=== PATIENT | female | born 1955 | race Caucasian/White ===

== ENCOUNTER → 2022-09-07 | Outpatient (CLI) | payer MEDICARE, MEDICAID, SELFPAY ==
--- NOTE | 2022-09-07 15:46 | RAD_ITS ---
INDICATION: baseline after pneumonia Apr 2022 EXAMINATION/TECHNIQUE: X-RAY - XR Chest 2 Views COMPARISON: November 01, 2016. FINDINGS: LINES/DEVICES: None. LUNGS: No consolidation, edema or effusion. No pneumothorax. MEDIASTINUM AND CARDIOVASCULAR STRUCTURES: Cardiac silhouette not enlarged. Central airways and mediastinal contour are unremarkable. BONES AND SOFT TISSUES: Mild degenerative vertebral changes. RAD/Chest PA and Lateral IMPRESSION: No radiographic evidence of acute cardiopulmonary disease. Electronically Signed: Puneet Plata DO at 23:25 EDT Reading Location ID and State: [facility] / [place] Tel [phone], Service support ,
== END | disposition home or self-care (01) ==
LOC: RAD 15:35
PROVIDERS: Referring Provider Internal Medicine; Visit Provider Internal Medicine
DX: J45.909 Unspecified asthma, uncomplicated (principal); Z94.4 Liver transplant status; D84.9 Immunodeficiency, unspecified; Z94.0 Kidney transplant status
CPT/HCPCS: 71046

== ENCOUNTER → 2022-09-22 | Outpatient (CLI) | payer MEDICARE, MEDICAID, SELFPAY ==
--- NOTE | 2022-09-23 09:42 | PFTCOMP ---
COMPLETE PULMONARY FUNCTION TEST INTERPRETATION Brief HPI: Patient is a 66-year-old female, currently under the care of Dr. Heath, who presents to [facility] for complete pulmonary function tests secondary to diagnosis of asthma. Respiratory therapist reports good effort and reproducible results. Interpretation: Forced expiration spirometry shows no large airways obstructive ventilatory defect with an FEV1 of 85% predicted. There is no significant bronchodilator response by strict ATS criteria. Spirograms are of good quality and plateau normally. The respiratory flow volume loop shows a normal pattern. Lung volumes by body plethysmography show a normal total lung capacity at 3.97 L, 90% predicted. All other lung volumes are within normal limits. Diffusion capacity by carbon monoxide is decreased at 58% predicted. The airway resistance is slightly elevated. No previous pulmonary function tests were available for review. Impression: Isolated reduction in diffusion capacity consistent with a possible pulmonary vascular disorder. Lung volumes and spirometry are within normal limits.
== END | disposition home or self-care (01) ==
PROVIDERS: Referring Provider Internal Medicine; Visit Provider Internal Medicine
DX: J45.909 Unspecified asthma, uncomplicated (principal); J30.2 Other seasonal allergic rhinitis
CPT/HCPCS: 94060; 94726; 94729

== ENCOUNTER → 2022-12-01 | Outpatient (CLI) | payer MEDICARE, MEDICAID, SELFPAY ==
--- NOTE | 2022-12-03 15:01 | PFTCOMP ---
Complete pulmonary function testing report Patient: Jocelyn Villarreal Date of 1955 Date of study December 01, 2022 Indication: Asthma Referring physician: Gumaro Heath MD, no primary physician listed Spirometry pre and postbronchodilator show: 1. No evidence of airway obstruction 2. Positive response to bronchodilator. The FEV1 improves 12%. Clinical correlation is recommended. 3. Compared to spirometry September 22, 2022, the FVC decreased 16% FEV1 decreased 15%. This is a significant change. The home theatre technician indicated an acceptable and reproducible study. The patient gave a good effort. Lung volume studies by plethysmography showed: 1. Possible restriction; the total lung capacity was 75% predicted, FVC 68% predicted, remainder of lung volumes were normal. 2. No evidence of hyperinflation 3. Compared to September 22, 2022, the total lung capacity has decreased by 16%, and residual volume decreased by 16%. This is a significant change. Diffusing capacity by single breath carbon monoxide technique showed: 1. Moderately decreased DLCO at 55% predicted, which normalized when adjusted for lung volumes to 122% predicted. 2. Compared to DLCO on September 22, 2022, the DLCO has decreased by 12%. This is a significant change. Gumaro Heath MD [facility] Pulmonary Medicine [facility] December 03, 2022 3:08 PM
== END | disposition home or self-care (01) ==
LOC: PSN 10:28
PROVIDERS: Referring Provider Internal Medicine; Visit Provider Internal Medicine
DX: J45.909 Unspecified asthma, uncomplicated (principal)
CPT/HCPCS: 94060; 94726; 94729

== ENCOUNTER → 2024-07-11 | Outpatient (CLI) | payer MEDICAID, MEDICARE, SELFPAY ==
--- NOTE | 2024-07-11 13:02 | RAD_ITS ---
PROCEDURE: CHEST PA AND LATERAL REASON FOR EXAM: Asthma. TECHNIQUE: Single frontal image including the chest and abdomen. COMPARISON: Chest x-ray of 09/07/2022. RAD/Chest PA and Lateral IMPRESSION: Upper abdominal surgical clips are seen. Probable chronic lung changes, but no acute pneumonic process is clearly eviden t. No pleural effusion or pneumothorax is seen. The cardiomediastinal silhouette is remarkable for a partially calcified aorta. No evidence of cardiomegaly. Mild thoracic spine degenerative changes are noted. Reading Location: [address]
[2024-07-11 18:04] LABS: Color, Urine Yellow (Yellow); Glucose, Dipstick Normal (Normal); Ketone-Dipstick Negative (Negative); Leukocyte Esterase-Dipstick 25 /ul (Negative); Nitrite-Dipstick Negative (Negative); Occult Blood-Urine Negative /ul (Negative); Protein-Dipstick 15 mg/dl (Negative); Specific Gravity, Urine 1.015 (1.002-1.030); Urine Bilirubin Dipstick Negative (Negative); Urine Clarity Clear (Clear); Urine Urobilinogen Normal (Normal)
== END | disposition home or self-care (01) ==
PROVIDERS: Referring Provider Internal Medicine Pulmonary Disease; Visit Provider Internal Medicine Pulmonary Disease
DX: J45.909 Unspecified asthma, uncomplicated (principal); R39.9 Unspecified symptoms and signs involving the genitourinary system
CPT/HCPCS: 71046; 81002